=== PATIENT | male | born 1960 | race Caucasian/White ===

== ENCOUNTER → 2020-12-15 11:04 | Outpatient (CLI) | payer BC, SELFPAY ==
[2020-12-15 13:56] LABS: COVID19 -Nasal RAPID Negative (Negative)
== END ==
PROVIDERS: PCP Nurse Practitioner; Visit Provider Physical Medicine & Rehabilitation
DX: Z20.822 Contact with and (suspected) exposure to COVID-19 (principal)
CPT/HCPCS: 87635; C9803

== ENCOUNTER 2020-12-16 09:41 | Outpatient (CLI) | payer BC, SELFPAY ==
[2020-12-16] VITALS (8 sets, daily range): BP systolic 110–133; BP diastolic 62–84; PULSE 78–90; RESP 12–23; TEMP 36.3; O2SAT 93–99
--- NOTE | 2020-12-16 09:44 | DI.RAD.S_ITS ---
PROCEDURE: PAIN L/S TRANSFORAMINAL INJECT INDICATIONS: SPONDYLOSIS COMPARISON: [facility], RG, XR L-SPINE 2-3V, 09/09/2020, 13:22. Outside Facility, RG, MRI L-SPINE W/O CONTRAST, 10/17/2020, 9:24. FINDINGS: Fluoroscopic spot filming was performed to verify placement of a spinal needle at the L5-S1 level, as labeled on the films. Appropriate location of the needle tip was confirmed by injection of iodinated contrast. IMPRESSION: No significant intraprocedural abnormality. Dictated by: Bobby Johnson M.D. on 12/16/2020 at 10:11 Approved by: Bobby Johnson M.D. on 12/16/2020 at 10:11
[2020-12-16] MEDS: fentaNYL 100 MCG/2 ML INJ 50 MCG IV (10:47)
[2020-12-16] MEDS: MIDAZOLAM 5 MG/5 ML VIAL IV (10:47)
[2020-12-16] MEDS: IOPAMIDOL 15 ML VIAL 3 ML INJ (10:52)
[2020-12-16] MEDS: BETAMETHASONE 30 MG/5 ML MDV 12 MG INJ (10:52)
[2020-12-16] MEDS: BUPIVACAINE 0.25% (PF) VIAL 2 ML INJ (10:52)
[2020-12-16] MEDS: DEXAMETHASONE 10 MG/ML VIAL 20 MG INJ (10:53)
--- NOTE | 2020-12-16 11:01 | P.PCN_ITS ---
Date/Time/Diagnoses Date of procedure: 12/16/20 Time of procedure: 11:01 Pre-procedure diagnosis: 1. FORAMINAL STENOSIS WITH LE SYMPTOMS Post-procedure diagnosis: same Procedure Notes Procedure: 1. FLUOROSCOPICALLY GUIDED CONTRAST CONTROLLED TRANSFORAMINAL EPIDURAL STEROID INJECTION - Left L5/S1 Indications: Yannick is referred by EMILE Gaming for treatment of Foraminal Stenosis with Left LE Symptoms Physician: Micah Morales Total Fluoroscopy time (seconds): 11 Total sedation minutes: 8 Complications: none Procedure in detail & Post-procedure care: FINDINGS Foraminal Nerve Root Compression secondary to disc disease and facet hypertrophy DESCRIPTION OF PROCEDURE Following review of allergy and review of potential side effects and complications, including, but not necessarily limited to, infection, allergic reaction, local tissue breakdown, stroke, temporary or permanent nerve injury, paralysis, and possible , the patient indicated that the patient understood and agreed to proceed. An informed consent document was signed by the patient, witnessed by a nurse, and placed in the patient's chart. Additionally, other treatment options including medications, modalities, and physical therapy were reviewed with the patient. After review of previous anaesthesic history and IV conscious sedation the patient was deemed safe to proceed with today?s procedure with IV conscious sedation as ASA class II designation. Safety time-out was performed to confirm patient ID, procedure to be performed and site of procedure. IV sedation was accomplished with a combination of 2mg of Versed and 50mcg of Fentanyl was administered by the RN after DO order, titrated to patient comfort during the course of the procedure while the patient remained responsive to all verbal commands In the prone position following sterile prep and drape of the lumbar region, the Left L5/S1 posterior neuroforamen was identified fluoroscopically. The skin was anesthetized via a 25-gauge 1.5-inch needle with 1% lidocaine solution. At this point, a 25-gauge 3.5-inch spinal needle was atraumatically introduced and advanced under fluoroscopic guidance through the posterior Left L5/S1 neuroforamen to approximately the anterior aspect of the canal. Depth was confirmed on lateral view. Following negative aspiration, injection of approximately 1.5 cc of Isovue 200 under live fluoroscopy in the AP view confirmed excellent flow along the nerve root, into the epidural space without vascular or intrathecal uptake observed Radiological data, including multiple fluoroscopic views of the lumbosacral spine, reveal a spinal needle at the Left L5/S1 posterior neuroforamen. Subsequent views show flow of contrast material flowing superiorly and inferiorly along the nerve root confirming epidural flow. Subsequently, a test dose of 1.5 cc of 1% lidocaine solution was administered and patient was observed for two minutes for signs or symptoms of complications, including abdominal pain, shortness of breath, bilateral upper or lower extremity weakness, nausea and vomiting, prior to steroid injection. At this point, a total of 4cc or 20mg of dexamethasone and 12mg of betamethasone was inj ected without incident. The procedure tolerated the procedure well without signs or symptoms of complications prior to transfer to the recovery area continued monitoring without incident. The patient was then transferred to the recovery area where they were observed for an appropriate time after the injection. The patient reported a VAS score of 7 prior to the procedure and a post-procedure VAS of 0. POST OP INSTRUCTIONS The patient was provided a Pain Log to continue to record their response to the target-specific procedure prior to follow-up visit with their referring physician. Additionally, specific post-injection care instructions and a contact number to our office were provided if concerns arise regarding possible complications associated with the procedure are suspected.
== END 2020-12-16 11:19 | disposition home or self-care (01) ==
LOC: RAD 09:43
PROVIDERS: PCP Nurse Practitioner; Referring Provider Physical Medicine & Rehabilitation; Visit Provider Physical Medicine & Rehabilitation
DX: M48.07 Spinal stenosis, lumbosacral region (principal)
CPT/HCPCS: 64483; J0702; J1100; J2250; J3010

== ENCOUNTER → 2022-08-16 11:09 | Outpatient (CLI) | payer BC, SELFPAY ==
--- NOTE | 2022-08-16 11:10 | DI.RAD.S_ITS ---
PROCEDURE: XR FOOT RT MIN 3V INDICATIONS: diabetic ulcer open 1st MTP TECHNIQUE: 3 views of the foot were acquired. COMPARISON: None. FINDINGS: Bones: No ulceration identified. No fractures or dislocations. Hallux valgus deformity with bunion formation. Small bunionette. High plantar arch. Posterior calcaneal spur. No suspicious bony lesions. Soft tissues: Suspect soft tissue swelling at the 1st metatarsal head. No soft tissue gas is seen. No tibiotalar joint effusion. Achilles tendon appears normal. IMPRESSION: Soft tissue swelling at the 1st metatarsal head. No soft tissue gas is seen. No ulceration identified to suggest osteomyelitis. If clinically indicated three-phase bone scan or MRI could be considered for further evaluation. Dictated by: Masood Farmer M.D. on 08/16/2022 at 12:02 Approved by: Masood Farmer M.D. on 08/16/2022 at 12:04
== END ==
PROVIDERS: PCP Nurse Practitioner; Referring Provider Student in an Organized Health Care Education/Training Program; Visit Provider Student in an Organized Health Care Education/Training Program
DX: E11.621 Type 2 diabetes mellitus with foot ulcer (principal); L97.512 Non-pressure chronic ulcer of other part of right foot with fat layer exposed; M79.89 Other specified soft tissue disorders
CPT/HCPCS: 73630

== ENCOUNTER → 2022-10-15 07:42 | Outpatient (CLI) | payer BC, SELFPAY ==
[2022-10-15 08:33] LABS: COVID-19 CEPHEID 4-PLEX PCR Negative (Negative); Influenza A - CEPHEID Flu A NEGATIVE (NEGATIVE); Influenza B - CEPHEID Flu B NEGATIVE (NEGATIVE); Respiratory Syncytial Virus Negative (Negative)
== END ==
PROVIDERS: PCP Nurse Practitioner; Visit Provider Nurse Practitioner Family
DX: J06.9 Acute upper respiratory infection, unspecified (principal); Z20.822 Contact with and (suspected) exposure to COVID-19
CPT/HCPCS: 0241U